=== PATIENT | male | born 1950 | race Caucasian/White ===

== ENCOUNTER 2016-10-28 06:16 | Day surgery (SDC) | payer OTHER, MEDICAID ==
[2016-10-24 11:35] LABS: EOSINOPHILS # (AUTO) 0.3 K/uL (0-0.4)
[2016-10-24 11:39] LABS: BASOPHILS # (AUTO) 0.3 K/uL (0.00-0.22); BASOPHILS % (AUTO) 3.1 % (0.0-2.0); EOSINOPHILS % (AUTO) 2.8 % (0.0-4.0); HEMATOCRIT 52.1 % (36-52); HEMOGLOBIN 17.5 g/dL (12.0-18.0); LYMPHOCYTES # (AUTO) 2.6 K/uL (2.0-11.5); MEAN CORPUSCULAR HEMOGLOBIN 32 pg (27-31); MEAN CORPUSCULAR HGB CONC 34 g/dL (33-37); MEAN CORPUSCULAR VOLUME 94 fL (80-94); MONOCYTES # (AUTO) 0.5 K/uL (0.8-1.0); MONOCYTES % (AUTO) 5.7 % (1.7-9.3); NEUTROPHILS # (AUTO) 5.7 K/uL (1.8-7.7); NEUTROPHILS % (AUTO) 60.4 % (42.2-75.2); PLATELET COUNT (AUTO) 189 K/uL (140-450); RED BLOOD CELL COUNT(AUTO) 5.53 MIL/uL (4.20-6.10); RED CELL DISTRIBUTION WIDTH 12.9 % (11.6-13.7); WHITE BLOOD COUNT (AUTO) 9.4 K/uL (4.8-10.8)
[2016-10-24 11:55] LABS: ALBUMIN 3.8 g/dL (3.4-5.0); ANION GAP 11.1 (8-16); CALCIUM 8.4 mg/dL (8.5-10.1); CARBON DIOXIDE 28.4 mmol/L (21-32); CREATININE 1.1 mg/dL (0.6-1.3); POTASSIUM 4.5 mmol/L (3.5-5.1); TOTAL BILIRUBIN 0.6 mg/dL (0.0-1.0); TOTAL PROTEIN, SERUM 7.8 g/dL (6.4-8.2)
[~2016-10-28] VITALS: Ht 170.2 cm; Wt 85.7 kg
[2016-10-28] MEDS ORDERED: ceFAZolin 1,000 MG VIAL ONE (07:29)
[2016-10-28] MEDS ORDERED: BUPIVACAINE-MPF/EPI 0.25% 30 ML VIAL INJ ONE (07:29)
[2016-10-28] MEDS ORDERED: DEXAMETHASONE 4 MG/ML VIAL IVP ONE (07:45)
[2016-10-28] MEDS ORDERED: GLYCOPYRROLATE 0.2 MG/ML VIAL IV ONE (07:45)
[2016-10-28] MEDS ORDERED: SEVOFLURANE 250 ML BTL INH ONE (07:45)
[2016-10-28] MEDS ORDERED: PROPOFOL 200 MG/20 ML VIAL IV ONE (07:45)
[2016-10-28] MEDS ORDERED: ONDANSETRON 4 MG/2 ML VIAL IVP ONE (07:45)
[2016-10-28] MEDS ORDERED: ROCURONIUM 50 MG/5 ML VIAL IV ONE (07:45)
[2016-10-28] MEDS ORDERED: SUCCINYLCHOLINE CHLORIDE 200 MG/10 ML VIAL IV ONE (07:45)
[2016-10-28] MEDS ORDERED: NEOSTIGMINE 1:1000 10 MG/10 ML VIAL IM ONE (07:45)
[2016-10-28] MEDS ORDERED: MIDAZOLAM 2 MG/2 ML VIAL ONE (07:58)
[2016-10-28] MEDS ORDERED: fentaNYL 0.05 MG/ML VIAL ONE (07:58)
[2016-10-28] MEDS ORDERED: MEPERIDINE 50 MG/ML SYR ONE (07:58)
[2016-10-28] MEDS ORDERED: LACTATED RINGERS 1,000 ML IV SCH (08:21)
[2016-10-28] MEDS ORDERED: diphenhydrAMINE 50 MG/ML VIAL IVP PRN (08:25)
[2016-10-28] MEDS ORDERED: ONDANSETRON 4 MG/2 ML VIAL IVP PRN (08:25)
[2016-10-28] MEDS ORDERED: MEPERIDINE 25 MG/ML SYR IVP PRN (08:25)
[2016-10-28] MEDS ORDERED: HYDROmorphone 1 MG/ML AMP IVP PRN ×2 (08:25→09:20)
[2016-10-28] MEDS ORDERED: HYDROcodone/APAP 5/325 MG 1 TAB TAB PO PRN (09:20)
[2016-10-28] MEDS ORDERED: MORPHINE SULFATE 2 MG/ML SYR IVP PRN (09:20)
[2016-10-28] MEDS ORDERED: MORPHINE SULFATE 4 MG/ML SYR IV PRN (09:20)
[2016-10-28] MEDS ORDERED: ONDANSETRON 4 MG/2 ML VIAL IV PRN (09:20)
[2016-10-28] MEDS ORDERED: MEPERIDINE 25 MG/ML SYR ONE (09:44)
== END 2016-10-28 12:40 | disposition home or self-care (01) ==
LOC: MDS 06:16 → MMU 06:18 → MDS 12:40
PROVIDERS: ATTEND Surgery
DX: K43.2 Incisional hernia without obstruction or gangrene (principal)
CPT/HCPCS: 36415; 49560; 49568; 71010; 80053; 85025; 88302; 93005; C1781; J0330; J0690; J1100; J2175; J2250; J2270; J2405; J2704; J2710; J3010; J3490; J7060; J7120